=== PATIENT | female | born 1965 | race Caucasian/White ===

== ENCOUNTER 2018-01-30 11:44 | Observation (INO) | payer MEDICARE, OTHER ==
[~2018-01-30] VITALS: Ht 154.9 cm; Wt 44.0 kg
[~2018-01-30 11:44] MED LIST: BENAZEPRIL10 M1 OR; CYMBALTA30 MG OR; NO HOME MEDS; ROXICODONE30 MG OR
[2018-01-30] MEDS ORDERED: XANAX1 MG PO (12:15)
[2018-01-30] MEDS ORDERED: MORPHINE SUL30 M3 PO (12:16)
[2018-01-30] MEDS ORDERED: MORPHABOND PO (12:17)
[2018-01-30 12:41] LABS: INFLUENZA A NONE DETECTED (NONE DETECT); INFLUENZA B NONE DETECTED (NONE DETECT)
[2018-01-30 12:47] LABS: HEMATOCRIT 39.8 % (37.0-47.0); HEMOGLOBIN 12.9 g/dl (12.0-16.0); IMMATURE GRANULOCYTES 0.7 % (0.0-1.0); MEAN CELL VOLUME 86.3 fL CALC (80.0-100.0); MEAN CORPUSCULAR HGB CONC 32.4 g/L CALC (32.0-36.0); NEUT# 6.99 thou/uL (2.00-7.15); RED BLOOD COUNT 4.61 mill/uL (4.20-5.60); RED CELL DISTRI WIDTH 15.8 % (11.5-15.5)
[2018-01-30 12:53] LABS: ALKALINE PHOSPHATASE 101 u/l (38-126); BILIRUBIN, TOTAL 0.4 mg/dL (0.0-1.4); BUN 11 mg/dL (7-17); BUN/CREATININE RATIO 15 (12-20 (CALC)); CHLORIDE 103 mmol/l (95-108); CREATININE 0.7 mg/dL (0.5-1.0); GFR > 60 ML/MIN (>=60 (CALC)); GFR FOR AFR.AMER. > 60 ML/MIN (>=60 (CALC)); LIPASE 444 u/l (23-300); SGOT/AST 29 u/l (14-36); SGPT/ALT 20 u/l (9-52); SODIUM 138 mmol/l (137-146)
[2018-01-30 12:54] LABS: ALBUMIN 4.1 g/dL (3.2-5.0); ANION GAP 18 (6-22 (CALC)); CARBON DIOXIDE 21 mmol/l (22-30); POTASSIUM 4.2 mmol/l (3.5-5.1); TOTAL PROTEIN 6.9 g/dL (6.3-8.2)
[2018-01-30 15:17] LABS: URINE BILIRUBIN - DIPSTICK NEGATIVE (NEGATIVE); URINE BLOOD DIPSTICK NEGATIVE (NEGATIVE); URINE CLARITY CLEAR; URINE COLOR YELLOW; URINE GLUCOSE - DIPSTICK NEGATIVE (NEGATIVE); URINE KETONE NEGATIVE (NEGATIVE); URINE LEUK ESTERASE SMALL (NEGATIVE); URINE NITRITE - DIPSTICK NEGATIVE (Negative); URINE PROTEIN - DIPSTICK NEGATIVE (NEG-TRACE); URINE UROBILINOGEN - DIPSTICK 0.2 E.U./dL (0.2)
[2018-01-30 15:44] LABS: URINE RBC 0-2 RBC/hpf (0-5); URINE SQUAMOUS EPITHELIAL CELL RARE EPI/hpf (0-FEW)
[2018-01-30 16:17] VITALS: BP 142/86
[2018-01-30] MEDS ORDERED: HYDROCO/APAP1 TA9 PO (16:18)
[2018-01-30] MEDS ORDERED: TRAZODONE100 MG PO (16:21)
[2018-01-30] MEDS ORDERED: FLEXERIL5 MG PO (16:22)
[2018-01-30] MEDS ORDERED: CYMBALTA60 MG PO (16:24)
[2018-01-30 17:11] LABS: BARBITURATES NEGATIVE (NEGATIVE); COCAINE NEGATIVE (NEGATIVE); METHADONE NEGATIVE (NEGATIVE); OXCYCODONE NEGATIVE (NEGATIVE); TETRAHYDROCANNABIONOL NEGATIVE (NEGATIVE); TRICYLIC ANTIDEPRESSANTS NEGATIVE (NEGATIVE)
[2018-01-30 19:13] VITALS: BP 131/86
[2018-01-31] VITALS: BP 115/78
[2018-01-31 04:00] VITALS: BP 114/65
[2018-01-31 05:29] LABS: CHOLESTEROL HDL RATIO 2.3 (<4.4 (CALC)); MAGNESIUM 1.8 mg/dL (1.6-2.3)
[2018-01-31 07:50] VITALS: BP 126/63
[2018-01-31] MEDS ORDERED: MORPHINE SULFAT30 M1 PO ×2 (12:21→12:23)
[2018-01-31] MEDS ORDERED: CYMBALTA60 MG PO (12:23)
[2018-01-31] MEDS ORDERED: HYDROCO/APAP1 TA9 PO (12:23)
[2018-01-31] MEDS ORDERED: XANAX1 MG PO (12:23)
[2018-01-31] MEDS ORDERED: TRAZODONE100 MG PO (12:23)
[2018-01-31] MEDS ORDERED: FLEXERIL5 MG PO (12:23)
== END 2018-01-31 16:52 | disposition home or self-care (01) ==
LOC: ED 11:44 → ED-I 14:19 → ED 14:32 → MS2 14:33
PROVIDERS: Family Medicine; Nurse Practitioner Family; ADMIT Internal Medicine; ATTEND Internal Medicine
DX: K85.90 Acute pancreatitis without necrosis or infection, unspecified (principal); F31.9 Bipolar disorder, unspecified; G89.4 Chronic pain syndrome; F41.9 Anxiety disorder, unspecified; J44.9 Chronic obstructive pulmonary disease, unspecified; G35 Multiple sclerosis; G40.909 Epilepsy, unspecified, not intractable, without status epilepticus; F17.210 Nicotine dependence, cigarettes, uncomplicated; M19.90 Unspecified osteoarthritis, unspecified site; E11.22 Type 2 diabetes mellitus with diabetic chronic kidney disease; N18.9 Chronic kidney disease, unspecified; Z86.73 Personal history of transient ischemic attack (TIA), and cerebral infarction without residual deficits; Z59.0 Homelessness; Z96.643 Presence of artificial hip joint, bilateral; Z96.653 Presence of artificial knee joint, bilateral
CPT/HCPCS: Q9967